=== PATIENT | male | born 1960 | race Hispanic/Latino ===

== ENCOUNTER 2017-08-26 12:47 | Emergency (ER) | payer OTHER ==
[2017-08-26 12:57] VITALS: RESP 18
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
[2017-08-26 14:22] VITALS: BP 139/74; PULSE 74; TEMP 98.2
[2017-08-26 23:54] VITALS: O2SAT 97
== END 2017-08-26 14:21 | disposition home or self-care (01) ==
LOC: C.ER 12:47
DX: M54.5 Low back pain (principal); V89.2XXA Person injured in unspecified motor-vehicle accident, traffic, initial encounter